=== PATIENT | female | born 1965 | race African-American/Black ===

== ENCOUNTER 2019-02-20 10:01 | Observation (INO) | payer OTHER ==
[~2019-02-20] VITALS: Ht 157.5 cm; Wt 82.6 kg
--- OUTSIDE RECORDS SUMMARY | 2019-02-20 10:03 | XMS REPORT | Clinical Summary ---
Author Author [facility] Address Unknown Phone Unavailable Care Team Providers Care Emergency Dept Tech Name Role Phone Milton Garcia MD PCP Allergies Comments Active Allergy Reactions Severity Noted Date Cyclobenzaprine Hcl Anaphylaxis High 11/18/2018 Other reaction(s): Other (See Comments) Pork/Porcine Containing 01/13/2015 Products Medications End Date Status Medication Sig Dispensed Refills Start Date Active acetaminophen (TYLENOL Take by 0 ORAL) mouth. Active omega-3s/dha/epa/fish oil Take by 0 (OMEGA 3 ORAL) mouth. Active multivitamin (THERAGRAN) Take 1 tablet 0 tablet by mouth daily. 01/11/2019 Discontinued (Patient Discharge) BYSTOLIC 5 mg tablet Take 5 mg by 11 mouth once 7 daily. 01/11/2019 Discontinued (Patient Discharge) sertraline (ZOLOFT) 50 MG Take 50 mg by tablet mouth once 7 daily. 01/11/2019 Discontinued (Patient Discharge) traMADol-acetaminophen Take 1 tablet 0 (ULTRACET) 37.5-325 mg by mouth 7 per tablet every 12 (twelve) hours as needed. for pain 01/02/2019 methylPREDNISolone follow 21 tablet 0 (MEDROL, KAREN,) 4 mg package 9 tablet directions 01/17/2019 methylPREDNISolone follow 21 tablet 0 (MEDROL, KAREN,) 4 mg package 9 tablet directions Active Problems No known active problems Encounters Care Team Description Date Type Specialty Kisha Dockery RN 01/24/2019 Telephone Orthopedic Surgery Luly Guan MD Left shoulder strain, subsequent encounter (Primary Dx); Right shoulder strain, subsequent encounter 01/11/2019 Office Visit Orthopedic Surgery Luly Guan MD Left shoulder strain, subsequent encounter (Primary Dx); Right shoulder strain, subsequent encounter 2018 Office Visit Orthopedic Surgery Lluy Guan MD Left shoulder strain, initial encounter (Primary Dx); Right shoulder strain, initial encounter 12/14/2018 Office Visit Orthopedic Surgery Luly Guan MD 11/26/2018 Documentation Orthopedic Surgery Luly Guan MD Acute pain of both shoulders (Primary Dx); Right shoulder strain, initial encounter; Left shoulder strain, initial encounter 11/25/2018 Office Visit Orthopedic Surgery Rene Jones MD 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 Last Filed Vital Signs Reading Time Taken Comments Vital Sign - - Blood Pressure - - Pulse - - Temperature - - Respiratory Rate - - Oxygen Saturation - - Inhaled Oxygen Concentration 84.4 kg (186 lb) 01/11/2019 3:49 PM CDT Weight 162.6 cm (5' 4") 01/11/2019 3:49 PM CDT Height 31.93 01/11/2019 3:49 PM CDT Body Mass Index Plan of Treatment Care Team Description Date Type Specialty Luly Guan MD [address] [phone] 02/25/2019 Office Visit Orthopedic Surgery Health Maintenance Due Date Last Done Comments BREAST CANCER SCREENING 2016 COLONOSCOPY SCREENING 2016 SHINGLES VACCINES (#1) 2016 INFLUENZA VACCINE 02/03/2019 Procedures Comments Procedure Name Priority Date/Time Associated Diagnosis MRI SHOULDER WO CONTRAST Routine 11/25/2018 Left shoulder strain, LEFT 3:45 PM CDT initial encounter MRI SHOULDER WO CONTRAST Routine 11/25/2018 Right shoulder strain, RIGHT 3:34 PM CDT initial encounter XR SHOULDERS BILATERAL Routine 11/25/2018 Acute pain of both 1:45 PM CDT shoulders FUNGUS SMEAR Routine 09/09/2018 1:00 PM TILE MECHANIC HELPER AFB STAIN Routine 09/09/2018 1:00 PM TILE MECHANIC HELPER GRAM STAIN Routine 09/09/2018 1:00 PM TILE MECHANIC HELPER SPUTUM CULTURE Routine 09/09/2018 Pulmonary disease due to 1:00 PM TILE MECHANIC HELPER mycobacteria (HCC) XR CHEST 2 VW Routine 09/09/2018 Cough 12:54 PM TILE MECHANIC HELPER FUNGUS CULTURE Routine 09/09/2018 Pulmonary disease due to 12:00 PM TILE MECHANIC HELPER mycobacteria (HCC) AFB CULTURE Routine 09/09/2018 Pulmonary disease due to 12:00 PM TILE MECHANIC HELPER mycobacteria (HCC) after 02/19/2018 Results * MRI Shoulder Wo Contrast Left (11/25/2018 3:45 PM CDT) Specimen Narrative Performed At EXAMINATION:MRI SHOULDER WO CONTRAST LEFT [facility] CLINICAL HISTORY:S46.912A Strain of unspecified musclefascia and tendon at shoulder and upper arm levelleft arminitial encounter, Shoulder paininitial exam COMPARISON:None. TECHNIQUE: Multiplanar, multisequence MR imaging of the left shoulder was performed without contrast. FINDINGS: There is low-grade subscapularis and supraspinatus tendinosis. An intrasubstance longitudinal tear is observed within the cranial subscapularis myotendinous unit (series 2 image 11, series 7 image 10). There is articular and bursal-sided fraying of the supraspinatus tendon, and tiny foci of fluid signal intensity partially undermine the the supraspinatus tendon footprint (series 4 images 11-13). There is no significant rotator cuff tear. Normal muscle bulk and signal are present. No strain, atrophy, or myositis seen. Long head of the biceps tendon, biceps sling, and rotator interval are intact. Nondisplaced tear of the superior labrum incidentally noted (series 4 images 11-13). Hypertrophic osteoarthritis of the acromioclavicular joint with capsulosynovial thickening effacing the subacromial fat and impressing upon the supraspinatus myotendinous unit (series 4 image 14). Acromion is type III with lateral downsloping. No subluxation or os acromiale. There is mild thickening of the subacromial-subdeltoid bursa. Glenohumeral articular cartilage is intact. Subcortical microcysts are located within the posterolateral humeral head. There are no significant degenerative changes and no malalignment. Bone marrow signal is normal. No joint effusion. Intermediate signal intensity within the rotator interval is consistent with low-grade adhesive capsulitis. IMPRESSION: 1. Low-grade adhesive capsulitis. 2. There are findings suggestive of and which predispose to the clinical diagnosis of extrinsic cuff impingement. Thank you for allowing us to participate in the care of your patient. [facility]-[id number] Procedure Note Hm Interface, Radiology Results Incoming - 11/25/2018 4:13 PM CDT EXAMINATION: MRI SHOULDER WO CONTRAST LEFT CLINICAL HISTORY: S46.912A Strain of unspecified muscle fascia and tendon at shoulder and upper arm level left arm initial encounter, Shoulder pain initial exam COMPARISON: None. TECHNIQUE: Multiplanar, multisequence MR imaging of the left shoulder was performed without contrast. FINDINGS: There is low-grade subscapularis and supraspinatus tendinosis. An intrasubstance longitudinal tear is observed within the cranial subscapularis myotendinous unit (series 2 image 11, series 7 image 10). There is articular and bursal-sided fraying of the supraspinatus tendon, and tiny foci of fluid signal intensity partially undermine the the supraspinatus tendon footprint (series 4 images 11-13). There is no significant rotator cuff tear. Normal muscle bulk and signal are present. No strain, atrophy, or myositis seen. Long head of the biceps tendon, biceps sling, and rotator interval are intact. Nondisplaced tear of the superior labrum incidentally noted (series 4 images 11-13). Hypertrophic osteoarthritis of the acromioclavicular joint with capsulosynovial thickening effacing the subacromial fat and impressing upon the supraspinatus myotendinous unit (series 4 image 14). Acromion is type III with lateral downsloping. No subluxation or os acromiale. There is mild thickening of the subacromial-subdeltoid bursa. Glenohumeral articular cartilage is intact. Subcortical microcysts are located within the posterolateral humeral head. There are no significant degenerative changes and no malalignment. Bone marrow signal is normal. No joint effusion. Intermediate signal intensity within the rotator interval is consistent with low-grade adhesive capsulitis. IMPRESSION: 1. Low-grade adhesive capsulitis. 2. There are findings suggestive of and which predispose to the clinical diagnosis of extrinsic cuff impingement. Thank you for allowing us to participate in the care of your patient. [facility]-[id number] [facility] Organization Address City/State/Zipcode Phone Number [facility] [address] [place] [address] * MRI Shoulder Wo Contrast Right (11/25/2018 3:34 PM CDT) Specimen Narrative Performed At [facility] EXAMINATION:MRI SHOULDER WO CONTRAST RIGHT CLINICAL HISTORY:S46.911A Strain of unspecified musclefascia and tendon at shoulder and upper arm levelright arminitial encounter, strain COMPARISON:None. TECHNIQUE: Multiplanar, multisequence MR imaging of the right shoulder was performed without contrast. FINDINGS: There is a moderate partial thickness intrasubstance tear of the anterior infraspinatus tendon footprint measuring 6 mm from anterior to posterior without significant retraction (series 5 image 10, series 6 image 3). There is also tendinosis involving the distal 2 cm of the tendon. Remainder of the rotator cuff is unremarkable. There is normal muscle bulk and signal. No muscular strain, atrophy, or myositis. Long head of the biceps tendon, biceps sling, labral anchor, and rotator interval are intact. There is low-grade tendinosis of the intra-articular segment. Linear intermediate signal intensity seen within the substance of the anterosuperior labrum (series 5 image 12) is probably a healed tear. 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 Acromion is type I. No subluxation, downsloping, or os acromiale. There is mild fluid distention and thickening of the subacromial-subdeltoid bursa. Glenohumeral articular cartilage is intact. Subcortical microcysts are located within the posterolateral humeral head. There are no significant degenerative changes. No joint effusion, synovitis, or capsulitis. IMPRESSION: 1. Tendinosis and moderate partial-thickness intrasubstance tear of the distal anterior infraspinatus tendon. 2. There are findings which predispose to and are suggestive of the clinical diagnosis of extrinsic rotator cuff impingement. Thank you for allowing us to participate in the care of your patient. [id number] Procedure Note Hm Interface, Radiology Results Incoming - 11/25/2018 4:59 PM CDT EXAMINATION: MRI SHOULDER WO CONTRAST RIGHT CLINICAL HISTORY: S46.911A Strain of unspecified muscle fascia and tendon at shoulder and upper arm level right arm initial encounter, strain COMPARISON: None. TECHNIQUE: Multiplanar, multisequence MR imaging of the right shoulder was performed without contrast. FINDINGS: There is a moderate partial thickness intrasubstance tear of the anterior infraspinatus tendon footprint measuring 6 mm from anterior to posterior without significant retraction (series 5 image 10, series 6 image 3). There is also tendinosis involving the distal 2 cm of the tendon. Remainder of the rotator cuff is unremarkable. There is normal muscle bulk and signal. No muscular strain, atrophy, or myositis. Long head of the biceps tendon, biceps sling, labral anchor, and rotator interval are intact. There is low-grade tendinosis of the intra-articular segment. Linear intermediate signal intensity seen within the substance of the anterosuperior labrum (series 5 image 12) is probably a healed tear. 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 Acromion is type I. No subluxation, downsloping, or os acromiale. There is mild fluid distention and thickening of the subacromial-subdeltoid bursa. Glenohumeral articular cartilage is intact. Subcortical microcysts are located within the posterolateral humeral head. There are no significant degenerative changes. No joint effusion, synovitis, or capsulitis. IMPRESSION: 1. Tendinosis and moderate partial-thickness intrasubstance tear of the distal anterior infraspinatus tendon. 2. There are findings which predispose to and are suggestive of the clinical diagnosis of extrinsic rotator cuff impingement. Thank you for allowing us to participate in the care of your patient. [facility]-[id number] Performing Organization Address [facility] Phone Number [facility] [address] [place] [phone] * XR Shoulders Bilateral (11/25/2018 1:45 PM CDT) Specimen [facility]arrative [facility] Radiographs of the left shoulder, 3 views, AP, Y and axillary lateral views: No fracture, no dislocation, normal alignment, preserved glenohumeral joint space, no pathologic lesion, benign greater tuberosity cysts, preserved acromiohumeral interval, type II acromion, AC joint degenerative changes Radiographs of the right shoulder, 3 views, AP, Y and axillary lateral views: No fracture, no dislocation, normal alignment, preserved glenohumeral joint space, no pathologic lesion, benign greater tuberosity cysts, preserved acromiohumeral interval, type II acromion, AC joint degenerative changes Performing Organization Address [facility] Cent[facility]ode Phone Number [facility] [address] [place] [phone] * Fungus smear (09/09/2018 1:00 PM TILE MECHANIC HELPER) Fungus smear No fungi observed. [place] Comment: [facility] Specimen Information HOSPITAL Specimen Source: Sputum Specimen Site: Not otherwise specified Specimen Sputum - Not otherwise specified Performing Organization Address [facility] Cent[facility]ode Phone Number [facility] [place] [address] PATHOLOGY AND GENOMIC [facility]IC[facility] [place] [address] HOSPITAL * Sputum culture (09/09/2018 1:00 PM TILE MECHANIC HELPER) Sputum culture Normal oral rico isolated. [place] isolate Comment: [facility] Specimen Information HOSPITAL Specimen Source: Sputum Specimen Site: Not otherwise specified Specimen Sputum - Not otherwise specified Performing Organization Address [facility] Cent[facility]ode Phone Number [facility] [place] [address] PATHOLOGY AND GENOMIC MEDICINE [address] * Gram stain (09/09/2018 1:00 PM TILE MECHANIC HELPER) Gram stain Rare WBC's [place] isolate Many Gram positive rods [facility] Comment: HOSPITAL Specimen Information Specimen Source: Sputum Specimen Site: Not otherwise specified Specimen Sputum - Not otherwise specified Performing Organization Address City/[facility]/Zipcode Phone Number [facility] DEPARTMENT OF [address] [place] [phone] PATHOLOGY AND [facility] [address] [place] [address] * AFB stain (09/09/2018 1:00 PM TILE MECHANIC HELPER) AFB stain No acid fast bacilli (AFB) [place] seen. [facility] Comment: HOSPITAL Specimen Information Specimen Source: Sputum Specimen Site: Not otherwise specified Specimen Sputum - Not otherwise specified Performing Organization Address [facility] Centercode Phone Number [facility] DEPARTMENT OF [address] [place] [phone] PATHOLOGY [facility] [place] [address] HOSPITAL * XR Chest 2 Vw (09/09/2018 12:54 PM TILE MECHANIC HELPER) Specimen Narrative Performed At Examination:XR CHEST 2 VW [facility] Clinical History: R05 Cough, r05 Comparison: None. Technique: Frontal and lateral views of the chest were obtained. Findings: Lungs and pleural surfaces are clear. Cardiomediastinal silhouette and pulmonary vascularity are within normal limits. Bones are intact. Impression: No active cardiopulmonary disease identified. [facility]-[id number] Procedure Note Interface, Radiology Results Incoming - 09/09/2018 1:09 PM TILE MECHANIC HELPER Examination: XR CHEST 2 VW Clinical History: R05 Cough, r05 Comparison: None. Technique: Frontal and lateral views of the chest were obtained. Findings: Lungs and pleural surfaces are clear. Cardiomediastinal silhouette and pulmonary vascularity are within normal limits. Bones are intact. Impression: No active cardiopulmonary disease identified. [facility]-[id number] Performing Organization Address City/[facility]/Zipcode Phone Number [facility] [address] [place] [phone] * AFB culture (09/09/2018 12:00 PM TILE MECHANIC HELPER) AFB culture No growth after 6 weeks of [place] isolate incubation. [facility] Comment: HOSPITAL Specimen Information Specimen Source: Sputum Specimen Site: Not otherwise specified Specimen Sputum - Not otherwise specified Performing Organization Address City/[facility]/Zipcode Phone Number [facility] DEPARTMENT OF [address] [place] [phone] PATHOLOGY AND [facility] [address] [place] [address] * Fungus culture (09/09/2018 12:00 PM TILE MECHANIC HELPER) Fungus culture No growth after 4 weeks of [place] isolate incubation. [facility] Comment: HOSPITAL Specimen Information Specimen Source: Sputum Specimen Site: Not otherwise specified Specimen Sputum - Not otherwise specified Performing Organization Address City/State/Zipcode Phone Number 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
--- OUTSIDE RECORDS SUMMARY | 2019-02-20 10:03 | XMS REPORT ---
Author Author [facility] Address Unknown Phone Unavailable Care Team Providers Care Dairy Clerk Name Role Phone Unavailable Unavailable Problems This patient has no known problems. Allergies, Adverse Reactions, Alerts This patient has no known allergies or adverse reactions. Medications This patient has no known medications.
--- OUTSIDE RECORDS SUMMARY | 2019-02-20 10:07 | XMS REPORT | Clinical Summary ---
Author Author Marquez Jain Organization [employer] [facility] Address Unknown Phone Unavailable Care Team Providers Care Senior Accounts Payable Specialist Name Role Phone Milton Garcia MD PCP [...] subsequent encounter 2018 Office Visit Orthopedic Surgery Luly Guan MD Left shoulder strain, initial encounter [...] Description Date Type Specialty Luly Guan MD [address] [id number] 02/25/2019 Office Visit Orthopedic Surgery Health Maintenance [...] shoulders FUNGUS SMEAR Routine 09/09/2018 1:00 PM KENO WRITER/RUNNER AFB STAIN Routine 09/09/2018 1:00 PM KENO WRITER/RUNNER GRAM STAIN Routine 09/09/2018 1:00 PM KENO WRITER/RUNNER SPUTUM CULTURE Routine 09/09/2018 Pulmonary disease due to 1:00 PM KENO WRITER/RUNNER mycobacteria (HCC) XR CHEST 2 VW Routine 09/09/2018 Cough 12:54 PM KENO WRITER/RUNNER FUNGUS CULTURE Routine 09/09/2018 Pulmonary disease due to 12:00 PM KENO WRITER/RUNNER mycobacteria (HCC) AFB CULTURE Routine 09/09/2018 Pulmonary disease due to 12:00 PM KENO WRITER/RUNNER mycobacteria (HCC) after 02/19/2018 Results * MRI [...] participate in the care of your patient. [facility]-[id number] Procedure Note Hm Interface, Radiology Results Incoming [...] participate in the care of your patient. [facility]-[id number] [facility] Organization Address City/State/Zipcode Phone Number [facility] [address] [place] [address] * MRI Shoulder Wo Contrast Right (11/25/2018 [...] participate in the care of your patient. [facility]-[id number] Procedure Note Hm Interface, Radiology Results Incoming [...] participate in the care of your patient. [facility]-[id number] Performing Organization Address [facility] Phone Number [facility] [address] [place] [phone] * XR Shoulders Bilateral (11/25/2018 1:45 PM CDT) Specimen Narrative [facility]formed At [facility] Radiographs of the left shoulder, 3 views, [...] AC joint degenerative changes Performing Organization Address [facility] Phone Number [facility] [address] [place] [phone] * Fungus smear (09/09/2018 1:00 PM KENO WRITER/RUNNER) Fungus smear No fungi observed. [facility] Comment: [facility] Specimen Information HOSPITAL Specimen Source: Sputum Specimen Site: Not otherwise specified Specimen Sputum - Not otherwise specified Performing Organization Address [facility] Phone Number [facility] [place] [address] PATHOLOGY AND GENOMIC MEDICINE [place] [address] HOSPITAL * Sputum culture (09/09/2018 1:00 PM KENO WRITER/RUNNER) Sputum culture Normal oral rico isolated. MARQUEZ isolate Comment: [facility]OR[facility] Specimen Information HOSPITAL Specimen Source: Sputum Specimen Site: Not otherwise specified Specimen Sputum - Not otherwise specified Performing Organization Address [facility] Phone Number [facility] [place] [address] PATHOLOGY AND GENOMIC MEDICINE [address] * Gram stain (09/09/2018 1:00 PM KENO WRITER/RUNNER) Gram stain Rare WBC's MARQUEZ isolate Many Gram positive rods [facility] Comment: HOSPITAL Specimen Information Specimen Source: Sputum Specimen Site: Not otherwise specified Specimen Sputum - Not otherwise specified Performing Organization Address City/[facility]/Zipcode Phone Number [facility] DEPARTMENT OF [address] [place] [phone] PATHOLOGY AND [facility] REST[facility]ATION [address] [place] [address] * AFB stain (09/09/2018 1:00 PM KENO WRITER/RUNNER) AFB stain No acid fast bacilli (AFB) [facility] seen. [facility] Comment: HOSPITAL Specimen Information Specimen Source: Sputum Specimen Site: Not otherwise specified Specimen Sputum - Not otherwise specified Performing Organization Address [facility] Phone Number [facility] DEPARTMENT OF [address] [place] [phone] PATHOLOGY [facility] [place] [address] HOSPITAL * XR Chest 2 Vw (09/09/2018 12:54 PM KENO WRITER/RUNNER) Specimen Narrative Performed At Examination:XR CHEST 2 VW [facility] Clinical History: R05 Cough, r05 Comparison: None. Technique: Frontal and lateral views of the chest were obtained. Findings: Lungs and pleural surfaces are clear. Cardiomediastinal silhouette and pulmonary vascularity are within normal limits. Bones are intact. Impression: No active cardiopulmonary disease identified. [facility]-[id number] Procedure Note Interface, Radiology Results Incoming - 09/09/2018 1:09 PM KENO WRITER/RUNNER Examination: XR CHEST 2 VW Clinical History: R05 Cough, r05 Comparison: None. Technique: Frontal and lateral views of the chest were obtained. Findings: Lungs and pleural surfaces are clear. Cardiomediastinal silhouette and pulmonary vascularity are within normal limits. Bones are intact. Impression: No active cardiopulmonary disease identified. [facility]-[id number] Performing Organization Address City/[facility]/Zipcode Phone Number [facility] [address] [place] [phone] * AFB culture (09/09/2018 12:00 PM KENO WRITER/RUNNER) AFB culture No growth after 6 weeks of [facility] isolate incubation. [facility] Comment: HOSPITAL Specimen Information Specimen Source: Sputum Specimen Site: Not otherwise specified Specimen Sputum - Not otherwise specified Performing Organization Address City/[facility]/Zipcode Phone Number [facility] DEPARTMENT OF [address] [place] [address] PATHOLOGY AND [facility] [address] [place] [address] * Fungus culture (09/09/2018 12:00 PM KENO WRITER/RUNNER) Fungus culture No growth after 4 weeks of [place] isolate incubation. 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
[2019-02-20] MEDS ORDERED: ASPIRIN 81 MG CHEW TAB PO ONE (10:30)
[2019-02-20 10:48] LABS: BASOPHILS % 0.3 % (0.0-1.0); EOSINOPHILS # (AUTO) 0.1 (0.0-0.4); HEMATOCRIT 39.4 % (34.2-44.1); HEMOGLOBIN 13.4 g/dL (12.0-16.0); LYMPHOCYTES # (AUTO) 1.7 (1.0-3.2); LYMPHOCYTES % 48.7 % (18.0-39.1); MEAN CORPUSCULAR HEMOGLOBIN 30.2 pg (28-32); MEAN CORPUSCULAR VOLUME 88.7 fL (81-99); MONOCYTES # (AUTO) 0.3 (0.2-0.8); MONOCYTES % 8.1 % (4.4-11.3); NEUTROPHILS # (AUTO) 1.4 (2.1-6.9); NEUTROPHILS % 40.6 % (38.7-80.0); PLATELET COUNT 260 x10e3/uL (140-360); RED BLOOD COUNT 4.44 x10e6/uL (3.6-5.1); RED CELL DISTRIBUTION WIDTH 12.2 % (11.7-14.4)
[2019-02-20 10:57] LABS: INR 0.97; PARTIAL THROMBOPLASTIN TIME 30.8 seconds (23.8-35.5); PROTHROMBIN TIME 13.4 seconds (11.9-14.5)
[2019-02-20 11:04] LABS: ALANINE AMINOTRANSFERASE 12 IU/L (0-55); ALBUMIN 4.2 g/dL (3.5-5.0); ALBUMIN/GLOBULIN RATIO 1.4 (0.8-2.0); ALKALINE PHOSPHATASE 52 IU/L (40-150); ANION GAP 13.8 mmol/L (8-16); BLOOD UREA NITROGEN 10 mg/dL (7-26); BUN/CREATININE RATIO 10 (6-25); CALCIUM 9.9 mg/dL (8.4-10.2); CARBON DIOXIDE 24 mmol/L (22-29); CHLORIDE 105 mmol/L (98-107); CREATINE KINASE 125 IU/L (29-168); CREATININE, SERUM 0.99 mg/dL (0.57-1.11); EST GLOMERULAR FILTRATION RATE > 60 ML/MIN (60-); GLUCOSE 89 mg/dL (74-118); MAGNESIUM 2.6 MG/DL (1.3-2.1); POTASSIUM 3.8 mmol/L (3.5-5.1); SODIUM 139 mmol/L (136-145)
--- NOTE | 2019-02-20 11:09 | Diagnostic Imaging Report ---
Examination: Single AP view of the chest. COMPARISON: Chest 2 views 08/24/2015 INDICATION: Chest pain, left-sided, radiating to left shoulder IMPRESSION: 1. Lines and Tubes: None 2. Lungs are grossly clear. No consolidation or effusion. 3. Cardiomediastinal silhouette is normal. Pulmonary vasculature is normal. 4. No acute bony abnormalities. Signed by: Dr. Mehdi King M.D. on 02/20/2019 11:06 AM
[2019-02-20] MEDS ORDERED: MORPHINE SULFATE INJ 4 MG/ML INJ 1ML IV ONE (11:45)
[2019-02-20] MEDS ORDERED: MORPHINE SULFATE 5 MG/ML VIAL IV ONE (11:45)
[2019-02-20 12:06] LABS: CLARITY,URINE CLEAR (CLEAR); COLOR,URINE YELLOW (YELLOW); LEUKOCYTE ESTERASE ,URINE NEGATIVE (NEGATIVE)
[2019-02-20 12:07] LABS: BILIRUBIN,URINE NEGATIVE (NEGATIVE); KETONES,URINE NEGATIVE (NEGATIVE); NITRITE,URINE NEGATIVE (NEGATIVE); PROTEIN,URINE DIPSTICK NEGATIVE (NEGATIVE); URINE UROBILINOGEN 0.2 mg/dL (0.2 - 1)
[2019-02-20 12:37] LABS: BACTERIA,URINE FEW /HPF; EPITHELIAL CELLS,URINE FEW /LPF; WBC,URINE (MAN) 0-5 /HPF (0-5)
--- OUTSIDE RECORDS SUMMARY | 2019-02-20 12:51 | XMS REPORT | Clinical Summary ---
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 [facility]-[id number] Procedure Note Hm Interface, Radiology Results Incoming [...] participate in the care of your patient. [facility]-[id number] [facility] Organization Address City/State/Zipcode Phone Number [facility] [address] [place] [address] * MRI Shoulder Wo Contrast Right (11/25/2018 [...] participate in the care of your patient. [facility]-[id number] Procedure Note Hm Interface, Radiology Results Incoming [...] participate in the care of your patient. [facility]-[id number] Performing Organization Address [facility] Servicescode Phone Number [facility] [address] [place] [phone] * XR Shoulders Bilateral (11/25/2018 1:45 PM CDT) Specimen Narrative Performed At [facility] Radiographs of the left shoulder, [...] AC joint degenerative changes Performing Organization Address [facility] Servicescode Phone Number [facility] [address] [place] [phone] * Fungus smear (09/09/2018 1:00 PM MD DO [facility]) Fungus smear No fungi observed. SE[facility] MILE Comment: SABIANIST Specimen Information HOSPITAL Specimen Source: Sputum Specimen Site: Not otherwise specified Specimen Sputum - Not otherwise specified Performing Organization Address [facility] Servicescode Phone Number [facility] [place] [address] PATHOLOGY AND GENOMIC MEDICINE [place] [address] HOSPITAL * Sputum culture (09/09/2018 1:00 PM MD DO [facility]) Sputum culture Normal oral rico isolated. MARQUEZ isolate Comment: SABIANIST Specimen Information HOSPITAL Specimen Source: Sputum Specimen Site: Not otherwise specified Specimen Sputum - Not otherwise specified Performing Organization Address [facility] Services[facility] Phone Number [facility] [place] [address] PATHOLOGY AND GENOMIC MEDICINE [address] * Gram stain (09/09/2018 1:00 PM MD DO [facility]) Gram stain Rare WBC's MARQUEZ isolate Many Gram positive rods SABIANIST Comment: HOSPITAL Specimen Information Specimen Source: Sputum Specimen Site: Not otherwise specified Specimen Sputum - Not otherwise specified Performing Organization Address City/[facility]/Zipcode Phone Number [facility] DEPARTMENT OF [address] [place] [address] [address] [facility] SABIANIST [address] [place] [address] * AFB stain (09/09/2018 1:00 PM MD DO [facility]) AFB stain No acid fast bacilli (AFB) [facility] seen. S[facility]IANIST Comment: HOSPITAL Specimen Information Specimen Source: Sputum Specimen Site: Not otherwise specified Specimen Sputum - Not otherwise specified Performing Organization Address [facility] Servicescode Phone Number [facility] DEPARTMENT OF [address] [place] [phone] PATHOLOGY [facility] [place] [address] HOSPITAL * XR Chest 2 Vw (09/09/2018 12:54 PM MD DO [facility]) Specimen Narrative Performed At Examination:XR CHEST 2 VW [facility] Clinical History: R05 Cough, r05 Comparison: None. Technique: Frontal and lateral views of the chest were obtained. Findings: Lungs and pleural surfaces are clear. Cardiomediastinal silhouette and pulmonary vascularity are within normal limits. Bones are intact. Impression: No active cardiopulmonary disease identified. [facility]-[id number] Procedure Note Interface, Radiology Results Incoming - 09/09/2018 1:09 PM MD DO [facility] Examination: XR CHEST 2 VW Clinical History: R05 Cough, r05 Comparison: None. Technique: Frontal and lateral views of the chest were obtained. Findings: Lungs and pleural surfaces are clear. Cardiomediastinal silhouette and pulmonary vascularity are within normal limits. Bones are intact. Impression: No active cardiopulmonary disease identified. [facility]-[id number] Performing Organization Address City/[facility]/Zipcode Phone Number [facility] [address] [place] [phone] * AFB culture (09/09/2018 12:00 PM MD DO [facility]) AFB culture No growth after 6 weeks of SE[facility] [place] isolate incubation. [facility]IANIST Comment: HOSPITAL Specimen Information Specimen Source: Sputum Specimen Site: Not otherwise specified Specimen Sputum - Not otherwise specified Performing Organization Address City/[facility]/Zipcode Phone Number [facility] DEPARTMENT OF [address] [place] [address] [address] [facility] SABIANIST [address] [place] [address] * Fungus culture (09/09/2018 12:00 PM MD DO [facility]) Fungus culture No growth after 4 weeks of SEVEN MILE isolate incubation. SABIANIST Comment: HOSPITAL Specimen Information Specimen Source: Sputum Specimen Site: Not otherwise specified Specimen Sputum - Not otherwise specified Performing Organization Address City/State/Zipcode Phone Number [facility] DEPARTMENT OF [address] [place] [address] PATHOLOGY AND GENOMIC MEDICINE [facility] SABIANIST [address] [place] [address] HOSPITAL after 02/19/2018 Insurance Type Payer Benefit Subscriber ID Effective Phone Address Plan / Dates Group HMO/PPO [facility] xxxxxxxxx 2018-P THCARE resent CHOICE/CHO ICE + Advance Directives Patient Assembly Line Machine Operator Explanation Type Date Recorded Advance Directives, Living Will and Medical Power of Copier Technician
[2019-02-20] MEDS ORDERED: ACETAMINOPHEN 325 MG TAB PO PRN (13:15)
--- NOTE | 2019-02-20 13:28 | NUR ---
DR. WELLER AT BEDSIDE FOR PT EVAL, EXPLAINING PLAN OF CARE; REQUESTING TO HAVE CARDIAC ENZYMES DRAWN AT THIS TIME, SPECIMENS DRAWN AT THIS TIME AND SENT TO THE LAB. INFORMED PRIMARY NURSE GILMAR GONZALEZ.
[2019-02-20] MEDS ORDERED: CLOPIDOGREL BISULFATE 75 MG TAB PO ONE ×2 (13:45→18:30)
--- NOTE | 2019-02-20 14:08 | NUR ---
RECEIVED TO ILYA AAOX3 NO DISTRESS NOTED, UPDATED ON POC VOICED UNDERSTANDING, DENIES PAIN AT THIS TIME, L AC 20G NO SS OF INFILTRATION NOTED, NO OTHER CO VOICED CALL LIGHT IN REACH WILL CONTINUE TO MONITOR
[2019-02-20 14:15] LABS: CREATINE KINASE 116 IU/L (29-168)
[2019-02-20] MEDS ORDERED: PROBIOTIC & AC1 EACH PO (14:41)
[2019-02-20] MEDS ORDERED: MULTI-VITAMIN1 EACH PO (14:41)
[2019-02-20] MEDS ORDERED: TYLENOL EXTRA500 MG PO (14:41)
[2019-02-20] MEDS ORDERED: ASPIRIN81 MG PO (14:41)
[2019-02-20] MEDS ORDERED: OMEGA-31000 MG PO (14:41)
[2019-02-20] MEDS ORDERED: METOPROLOL SUCC25 MG PO (14:41)
--- NOTE | 2019-02-20 14:53 | History and Physical ---
HISTORY OF PRESENT ILLNESS: The patient is came here with chest pain. She is a 53-year-old female, who has no past medical history except for some ovarian masses, constipation and hypertension. The patient came here with the episode of chest pain on the left side of the chest, radiated to the neck, also she has pain all over and her chest pain is reproduced by palpation. REVIEW OF SYSTEMS: CARDIOVASCULAR: She had episode of chest pain, lasted 16-20 minutes with sweating and nausea. RESPIRATORY: No shortness of breath. No cough. GASTROINTESTINAL: No nausea or vomiting. No diarrhea. She has been having constipation for a while and she is scheduled to have a colonoscopy. GENITOURINARY: No frequency, no dysuria. ALLERGIES: LISTED IN THE CHART. SOCIAL HISTORY: She does not smoke. She drinks occasionally. PAST MEDICAL HISTORY: Positive for what I mentioned and constipation, hypertension. PHYSICAL EXAMINATION: HEART: Showed regular rhythm. Normal S1, S2 sound. LUNGS: Clear bilaterally. ABDOMEN: Soft. EXTREMITIES: Show no evidence of cyanosis or hematoma. Chest pain reproduced by palpitation. EKG showed normal sinus rhythm, no evidence of any ST-segment elevation or depression. Troponin x1 is negative. IMPRESSION: 1. Chest pain. 2. Hypertension. 3. Constipation. PLAN OF TREATMENT: We are going to put on telemetry. Start aspirin, beta blockers, Cardiology consult with Dr. Hutchinson. MD FARIDA Smith/GODWIN /[id number]
[2019-02-20 15:15] VITALS: BP 177/86
[2019-02-20 15:31] VITALS: BP 177/86
[2019-02-20] MEDS ORDERED: CLOPIDOGREL BISULFATE 300 MG TAB-DO NOT STOCK PO ONE (18:00)
[2019-02-20] MEDS ORDERED: LOSARTAN POTASSIUM 100 MG TAB PO SCH (18:00)
--- NOTE | 2019-02-20 18:03 | Consultation ---
DATE OF CONSULTATION: Cardiac Consultation REASON FOR CONSULTATION: Chest pain. HISTORY OF PRESENT ILLNESS: This is a 53-year-old lady, who has known longstanding history of hypertension and fibromyalgia. The patient came to this institution complaining of severe chest pain. Initially, she gives ER team history of retrosternal chest pain radiating to her left arm and to her neck. When I visit with her, her pain is subsiding and now she can pinpoint it. It is more over her left breast at one point and definitely radiating to her neck, but in muscle fashion rather than angina fashion. Regardless, the patient does have symptoms consistent of chest pain and she does have several risk factors. She does have easy fatigability and shortness of breath on exertion. She does have some orthopnea, but no paroxysmal nocturnal dyspnea. There is no palpitation. No syncope or presyncope. There is no recent travel. There is no hormone use. There is no pleuritic or pericarditic chest pain. REVIEW OF SYSTEMS: Extensive to all systems, will be summarized for clarity. GENERAL: No fever. No chills. No weight loss. No weight gain. HEENT: No vision problem. No hearing problem. No allergies. No hay fever. PULMONARY: No cough. No hemoptysis. No pleuritic chest pain. CARDIAC: As per acute illness. GI: Bloating, indigestion, but more importantly severe constipation and occasional nausea and vomiting. : No hematuria. No dysuria. MUSCULOSKELETAL: Aches and pain, low back, all muscles. The patient does have fibromyalgia and low back pain. HEMATOLOGY: No easy bruising or bleeding. ENDOCRINE: No polyuria. No polydipsia. No history of diabetes mellitus. NEUROLOGY: Occasional headache. No seizure activity. No weakness. No TIA-like symptoms. SOCIAL HISTORY: She is . She is nonsmoker and non-alcohol drinker. She works in [employer] in a company. HOME MEDICATIONS: 1. Metoprolol-XL or Toprol-XL 25 mg a day. 2. Aspirin 81 mg a day. 3. Twain. 4. Multivitamins. 5. Probiotic. ALLERGIES: LONG LIST INCLUDING CYCLOBENZAPRINE, TRAMADOL, BENAZEPRIL, HYDROCHLOROTHIAZIDE, LISINOPRIL, AND FLEXERIL. PAST MEDICAL HISTORY: 1. Fibromyalgia. 2. Partial hysterectomy. 3. History of meningitis 20 years ago, spinal tap, most likely viral meningitis. 4. Ectopic , status post surgery. 5. Ovarian mass diagnosed and the patient supposed to have surgery and followup in March 28, 2019. FAMILY HISTORY: Father unknown medical history. Mother doing well in her 70s. She does have one brother and she lost him in his 30s for blood illness. One sister, who is 2 years older at age 54, she is a diabetic, hypertensive, one healthy daughter. PHYSICAL EXAMINATION: VITAL SIGNS: Height of 5 feet 6 inches, weight of 176 pounds, blood pressure 160/90, heart rate of 60, and respiratory rate of 18. HEENT: Pupils are equal and reactive. NECK: No elevation of jugular venous pulsation. No bruit. CHEST: Clear to auscultation and percussion. HEART: PMI 5th left intercostal space. Normal first and second heart sounds. ABDOMEN: Soft with good bowel sounds. No organomegaly. No abdominal bruits. EXTREMITIES: No cyanosis. No clubbing. No edema. No signs of deep venous thrombosis. No delay between femoral and carotid pulses. NEUROLOGIC: Neck is supple. No motor deficits. No localized weakness. LABORATORY DATA: Sodium of 139, potassium 3.8, BUN of 10, and creatinine of 0.99. White blood cell count of 3.47, hemoglobin of 13.4, hematocrit 39%, and platelet count of 260,000. Troponin first set is normal. Chest x-ray by report showed no major abnormality and no mediastinal widening with normal cardiomediastinal silhouette. IMPRESSION AND PLAN: 1. Hypertension. 2. Abnormal EKG with left ventricular hypertrophy voltage. 3. Fibromyalgia. 4. Back pain. 5. Ovarian mass. 6. Shortness of breath on exertion and chest tightness. Cardiac-salinas, the patient will be treated as acute coronary syndrome until proven otherwise. I will send stat cardiac enzymes now. If this will be negative, then the patient will have a nuclear stress test in the morning. If this positive, then the patient will be taken to the geochemical laboratory technician. We will get an echocardiogram to evaluate her left ventricular function and her left ventricular hypertrophy and to be sure we are not missing any other structural abnormality. We will maintain aspirin. We will maintain beta-nishi. We will check lipid profile also. Differential diagnosis are discussed and explained to the patient and her . The patient does have good number of questioning. In fact, the total patient care was almost 75 minutes discussing and explaining and taking history, etc. MD JENIFER Solares/GODWIN /[id number]
[2019-02-20] MEDS ORDERED: CLONIDINE HCL 0.1 MG TAB PO PRN (18:15)
[2019-02-20 20:00] VITALS: BP 165/86
--- NOTE | 2019-02-20 20:00 | NUR ---
PT IN BED, FAMILY AT BEDSIDE, NO CP AT THIS TIME, PT C/O PAIN TO LOWER LEGS, TINGLING IN THE EXTREMITIES, VS STABLE, NO OTHER SIGNS OR SYMPTOMS, CONTINUE TO MONITOR
[2019-02-20] MEDS ORDERED: DIAZEPAM 5 MG TAB PO PRN (21:45)
[2019-02-20 21:59] VITALS: BP 184/84
[2019-02-21] VITALS (7 sets, daily range): BP systolic 132–175; BP diastolic 72–95
--- NOTE | 2019-02-21 06:26 | NUR ---
pt awake easily, no distress noted, pt npo for radiology test, no other needs
[2019-02-21 06:35] LABS: BASOPHILS % 0.5 % (0.0-1.0); EOSINOPHILS # (AUTO) 0.1 (0.0-0.4); EOSINOPHILS % 2.6 % (0.0-6.0); HEMATOCRIT 38.7 % (34.2-44.1); HEMOGLOBIN 12.9 g/dL (12.0-16.0); LYMPHOCYTES # (AUTO) 2.2 (1.0-3.2); MEAN CORPUSCULAR HGB CONC 33.3 g/dL (31-35); MONOCYTES # (AUTO) 0.4 (0.2-0.8); MONOCYTES % 9.4 % (4.4-11.3); NEUTROPHILS # (AUTO) 1.2 (2.1-6.9); NEUTROPHILS % 31.2 % (38.7-80.0); PLATELET COUNT 233 x10e3/uL (140-360); RED CELL DISTRIBUTION WIDTH 12.5 % (11.7-14.4)
[2019-02-21 07:12] LABS: ALANINE AMINOTRANSFERASE 9 IU/L (0-55); ALBUMIN 3.7 g/dL (3.5-5.0); ALBUMIN/GLOBULIN RATIO 1.5 (0.8-2.0); ALKALINE PHOSPHATASE 47 IU/L (40-150); ANION GAP 11.1 mmol/L (8-16); BLOOD UREA NITROGEN 11 mg/dL (7-26); BUN/CREATININE RATIO 13 (6-25); CALCIUM 9.3 mg/dL (8.4-10.2); CARBON DIOXIDE 26 mmol/L (22-29); CHLORIDE 101 mmol/L (98-107); CREATININE, SERUM 0.83 mg/dL (0.57-1.11); EST GLOMERULAR FILTRATION RATE > 60 ML/MIN (60-); GLUCOSE 84 mg/dL (74-118); POTASSIUM 4.1 mmol/L (3.5-5.1); SODIUM 134 mmol/L (136-145)
[2019-02-21 07:17] LABS: CREATINE KINASE 82 IU/L (29-168)
[2019-02-21 07:18] LABS: CHOL/HDL RATIO 3.4 (3.0-3.6)
[2019-02-21 07:19] LABS: THYROID STIMULATING HORMONE 0.276 uIU/mL (0.350-4.940)
--- NOTE | 2019-02-21 07:34 | NUR ---
RECEIVED PATIENT AWAKE RESTING IN BED, NO SIGNS OF DISTRESS. BED LOW, WHEELS LOCKED, SIDE RAILS X2. CALL LIGHT IN REACH WILL CONTINUE TO MONITOR PATIENT.
[2019-02-21] MEDS: LACTOBACILLUS ACIDOPHILUS CAPSULE PO SCH ×2 (07:53→14:40)
[2019-02-21] MEDS: MULTIVITAMINS/MINERALS TAB PO SCH ×2 (07:53→14:40)
[2019-02-21] MEDS: OMEGA 3 POLYUNSAT FATTY ACIDS 1000 MG SOFTGEL PO SCH ×2 (07:53→14:40)
[2019-02-21] MEDS: METOPROLOL SUCCINATE 25 MG TAB XL PO SCH ×2 (08:40→14:59)
--- NOTE | 2019-02-21 13:05 | NUR ---
PATIENT TRANSFERRED TO ROOM 178. PATIENT LEFT IN STABLE CONDITION.
--- NOTE | 2019-02-21 16:38 | NUR ---
Patient's Left AC IV removed and tolerated well. Denies any chest pain or discomfort. B/P at 16:15 was 152/72 and heart rate--64. Patient taken via W/C to front lobby and daughter here to pick her up. Written and verbal discharge instructions given to patient. Patient is in good spirits.
--- NOTE | 2019-02-21 18:34 | Operative Report ---
DATE OF PROCEDURE: SURGEON: Bin Hutchinson MD PROCEDURE: Nuclear cardiac stress test ACQUISITION NUMBER: [id number]. TECHNICAL DETAILS: This was a resting stress protocol for the resting images. A total of 11 mCi of Myoview given intravenously. Half an hour after the injection, proper SPECT imaging and scanning were done. For the stress images at peak exercise, 29.3 mCi of Myoview was given and half an hour after the injection, proper SPECT processing and imaging were done. The patient tolerated the procedure. There were no complication. A. Hemodynamic finding; again the protocol is Jim with target heart rate at 143 per minute. 1. The patient exercised for total of 9 minute and 30 seconds. 2. Heart rate increased from 61 to 155 per minute. 3. Blood pressure increased from 160/100 to 213/111. 4. No chest pain. 5. No EKG changes. Impression; negative stress test. B. Nuclear study; 1. A. Myocardial perfusion: 2. a. Resting images. Resting images showed smooth distribution of the isotope in all segments with no abnormal uptake. b. Stress images again showed smooth distribution in all segments with no abnormal uptake. Of note, the septal segment was having higher count than the lateral in the horizontal axis. Impression; most likely normal perfusion myocardial imaging. 1. B. Heart volume: End-diastolic volume of 67, end systolic volume of 27 with left ventricular ejection fraction of 61%. 2. C. Segmental wall motion: Showed normal segmental wall motion abnormalities. IMPRESSION: Low risk cardiac stress test. Results are discussed and explained with the patient. Questions are answered. MD JENNI SolaresJ/MODL /[id number]
[2019-02-22] MEDS ORDERED: ASPIRIN 81 MG ENTERIC COATED PO SCH (09:00)
== END 2019-02-21 16:19 | disposition home or self-care (01) ==
LOC: ER 10:05 → ERHOLD 12:13 → MED/SURG 14:24 → IMCU 02-21 13:04
PROVIDERS: ADMIT Internal Medicine; ATTEND Internal Medicine
DX: R07.89 Other chest pain (principal); I10 Essential (primary) hypertension; Z88.8 Allergy status to other drugs, medicaments and biological substances; Z91.018 Allergy to other foods; Z82.49 Family history of ischemic heart disease and other diseases of the circulatory system; K59.00 Constipation, unspecified; M79.7 Fibromyalgia; N83.9 Noninflammatory disorder of ovary, fallopian tube and broad ligament, unspecified; R94.31 Abnormal electrocardiogram [ECG] [EKG]
CPT/HCPCS: 36415 ×2; 71045; 78452; 80053 ×2; 80061; 81001; 82550 ×2; 82553 ×2; 83735; 83880; 84443; 84484 ×2; 85025 ×2; 85610; 85730; 87086; 93005; 93017; 93306; 93970; 99284; A9502; G0378 ×2; J2270

== ENCOUNTER 2019-02-28 17:20 | Emergency (ER) | payer OTHER ==
[~2019-02-28] VITALS: Ht 157.5 cm; Wt 82.6 kg
[~2019-02-28 17:20] MED LIST: ASPIRIN81 MG PO; METOPROLOL SUCC25 MG PO; MULTI-VITAMIN1 EACH PO; OMEGA-31000 MG PO; PROBIOTIC & AC1 EACH PO; TYLENOL EXTRA500 MG PO
[2019-02-28] MEDS ORDERED: CLONIDINE HCL 0.2 MG TAB PO ONE (18:00)
[2019-02-28 18:13] LABS: BASOPHILS % 0.6 % (0.0-1.0); EOSINOPHILS # (AUTO) 0.1 (0.0-0.4); EOSINOPHILS % 1.5 % (0.0-6.0); HEMATOCRIT 39.6 % (34.2-44.1); HEMOGLOBIN 13.6 g/dL (12.0-16.0); LYMPHOCYTES # (AUTO) 2.6 (1.0-3.2); LYMPHOCYTES % 54.1 % (18.0-39.1); MEAN CORPUSCULAR HEMOGLOBIN 30.4 pg (28-32); MEAN CORPUSCULAR HGB CONC 34.3 g/dL (31-35); MEAN CORPUSCULAR VOLUME 88.6 fL (81-99); MONOCYTES # (AUTO) 0.3 (0.2-0.8); MONOCYTES % 7.1 % (4.4-11.3); NEUTROPHILS # (AUTO) 1.8 (2.1-6.9); NEUTROPHILS % 36.7 % (38.7-80.0); PLATELET COUNT 243 x10e3/uL (140-360); RED BLOOD COUNT 4.47 x10e6/uL (3.6-5.1); RED CELL DISTRIBUTION WIDTH 12.1 % (11.7-14.4)
[2019-02-28 18:15] LABS: INR 0.85; PROTHROMBIN TIME 12.1 seconds (11.9-14.5)
[2019-02-28 18:16] LABS: PARTIAL THROMBOPLASTIN TIME 23.8 seconds (23.8-35.5)
--- OUTSIDE RECORDS SUMMARY | 2019-02-28 18:22 | XMS REPORT | Clinical Summary ---
Author Author [facility] Address Unknown Phone Unavailable Care Team Providers Care Diamond Sander Name Role Phone Milton Garcia MD PCP [...] (Primary Dx) 09/09/2018 Transcribe Access Orders after 02/27/2018 Family History Medical History Relation Name Comments [...] CDT Body Mass Index Plan of Treatment Health Maintenance Due Date Last Done Comments CERVICAL CANCER SCREENING 12/28/1987 BREAST CANCER SCREENING 2016 COLONOSCOPY SCREENING 2016 [...] shoulders FUNGUS SMEAR Routine 09/09/2018 1:00 PM [facility] AFB STAIN Routine 09/09/2018 1:00 PM [facility] GRAM STAIN Routine 09/09/2018 1:00 PM [facility] SPUTUM CULTURE Routine 09/09/2018 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 [facility]-[id number] Procedure Note Hm Interface, Radiology Results Incoming [...] participate in the care of your patient. [facility]-[id number] Performing Organization Address City/State/Zipcode Phone Number [facility] [address] [place] [address] * MRI Shoulder Wo Contrast Right (11/25/2018 [...] participate in the care of your patient. [facility]-[id number] Procedure Note Interface, Radiology Results Incoming - 11/25/2018 4:59 [...] participate in the care of your patient. [facility]-[id number] Performing Organization Address City/State/Zipcode Phone Number [facility] [address] [place] [address] * XR Shoulders Bilateral (11/25/2018 1:45 PM CDT) Specimen Narrative Performed At [facility] Radiographs of the left shoulder, 3 views, [...] AC joint degenerative changes Performing Organization Address City/[facility] Phone Number [facility] [address] [place] [address] * Fungus smear (09/09/2018 1:00 PM [facility]) Fungus smear No fungi observed. [place] Comment: [facility] Specimen Information HOSPITAL Specimen Source: Sputum Specimen Site: Not otherwise specified Specimen Sputum - Not otherwise specified Performing Organization Address [facility] Cent[facility] Phone Number [facility] DEPARTMENT [address] [address] PATHOLOGY AND [facility] [place] [address] HOSPITAL * Sputum culture (09/09/2018 1:00 PM [facility]) Sputum culture Normal oral rico isolated. [facility] isolate Comment: [facility] Specimen Information HOSPITAL Specimen Source: Sputum Specimen Site: Not otherwise specified Specimen Sputum - Not otherwise specified Performing Organization Address City/[facility] Phone Number [facility] DEPARTMENT [address] [address] PATHOLOGY AND [facility] [place] [address] HOSPITAL * Gram stain (09/09/2018 1:00 PM [facility]) Gram stain Rare WBC's [place] isolate Many Gram positive rods [facility] Comment: HOSPITAL Specimen Information Specimen Source: Sputum Specimen Site: Not otherwise specified Specimen Sputum - Not otherwise specified Performing Organization Address [facility]/Zipcode Phone Number [facility] [place] [address] PATHOLOGY AND GENOMIC MEDICINE [place] [facility] [address] [place] [address] * AFB stain (09/09/2018 1:00 PM [facility]) AFB stain No acid fast bacilli (AFB) [facility] seen. [facility] Comment: HOSPITAL Specimen Information Specimen Source: Sputum Specimen Site: Not otherwise specified Specimen Sputum - Not otherwise specified Performing Organization Address City/[facility]/Zipcode Phone Number [facility] [place] [address] PATHOLOGY AND [facility] [place] [address] HOSPITAL * XR Chest 2 Vw (09/09/2018 12:54 PM [facility]) Specimen Narrative Performed At Examination:XR CHEST 2 VW [facility] Clinical History: R05 Cough, r05 Comparison: None. Technique: Frontal and lateral views of the chest were obtained. Findings: Lungs and pleural surfaces are clear. Cardiomediastinal silhouette and pulmonary vascularity are within normal limits. Bones are intact. Impression: No active cardiopulmonary disease identified. [facility]-[id number] Procedure Note Interface, Radiology Results Incoming - 09/09/2018 1:09 PM [facility] Examination: XR CHEST 2 VW Clinical History: R05 Cough, r05 Comparison: None. Technique: Frontal and lateral views of the chest were obtained. Findings: Lungs and pleural surfaces are clear. Cardiomediastinal silhouette and pulmonary vascularity are within normal limits. Bones are intact. Impression: No active cardiopulmonary disease identified. [facility]-[id number] Performing Organization Address City/[facility] [place] [address] * AFB culture (09/09/2018 12:00 PM [facility]) AFB culture No growth after 6 weeks of [place] isolate incubation. [facility] Comment: HOSPITAL Specimen Information Specimen Source: Sputum Specimen Site: Not otherwise specified Specimen Sputum - Not otherwise specified Performing Organization Address City/[facility]/Zipcode Phone Number [facility] [place] [place] [address] * Fungus culture (09/09/2018 12:00 PM [facility]) Fungus culture No growth after 4 weeks of [place] isolate incubation. [facility] Comment: HOSPITAL Specimen Information Specimen Source: Sputum Specimen Site: Not otherwise specified Specimen Sputum - Not otherwise specified Performing Organization Address City/State/Zipcode Phone Number [facility] DEPARTMENT OF [address] [place] [address] PATHOLOGY AND GENOMIC MEDICINE [place] [facility] [address] [place] [address] HOSPITAL after 02/27/2018 Insurance Type Payer Benefit Subscriber ID Effective Phone Address Plan / Dates Group HMO/PPO [facility] xxxxxxxxx 2018-P THCARE resent CHOICE/CHO ICE + Advance Directives For more information, please contact: [phone] Patient Dewer Explanation Type Date Recorded Advance Directives, Living Will and Medical Power of Client Administrator
[2019-02-28 18:27] LABS: ALANINE AMINOTRANSFERASE 12 IU/L (0-55); ALBUMIN 4.2 g/dL (3.5-5.0); ALBUMIN/GLOBULIN RATIO 1.3 (0.8-2.0); ALKALINE PHOSPHATASE 60 IU/L (40-150); ANION GAP 14.8 mmol/L (8-16); BLOOD UREA NITROGEN 15 mg/dL (7-26); BUN/CREATININE RATIO 16 (6-25); CALCIUM 9.9 mg/dL (8.4-10.2); CARBON DIOXIDE 25 mmol/L (22-29); CHLORIDE 103 mmol/L (98-107); CREATINE KINASE 101 IU/L (29-168); CREATININE, SERUM 0.95 mg/dL (0.57-1.11); EST GLOMERULAR FILTRATION RATE > 60 ML/MIN (60-); GLUCOSE 101 mg/dL (74-118); POTASSIUM 3.8 mmol/L (3.5-5.1); SODIUM 139 mmol/L (136-145)
--- NOTE | 2019-02-28 18:39 | Diagnostic Imaging Report ---
EXAMINATION: Head CT HISTORY: Lower extremity numbness and tingling sensation COMPARISON: None. TECHNIQUE: Multidetector axial images were obtained without contrast from the foramen magnum to the vertex . The images were reconstructed using brain and bone algorithms. Thin section brain images were reformatted into coronal and sagittal planes. Image quality: Motion/streaking artifact limits the evaluation of the skull base and posterior cranial fossa. Dose modulation, iterative reconstruction, and/or weight based adjustment of the mA/kV was utilized to reduce the radiation dose to as low as reasonably achievable. FINDINGS: Parenchyma: 1. No abnormal densities. 2. No mass or hemorrhage. No CT evidence of acute territorial vascular insult. Extra-axial spaces:No abnormal density. No extra-axial fluid collections Brain volume: Normal for age. Ventricles: No hydrocephalus or displacement. Arteries: No density suggestive of thrombus. Dural sinuses: No abnormal density. Extra-axial spaces: No abnormal density. Foramen magnum: No mass, Chiari malformation, or basilar invagination. Sella: No obvious mass. Paranasal/mastoid sinuses: Imaged portions unremarkable. Skull/Scalp: No lytic or blastic lesions. No fractures. IMPRESSION: No intracranial abnormalities. Signed by: Dr. Leanne Harris M.D. on 02/28/2019 6:35 PM
[2019-02-28] MEDS ORDERED: CLONIDINE HCL 0.1 MG TAB PO ONE (19:00)
[2019-02-28 19:26] VITALS: BP 160/92
== END 2019-02-28 19:55 | disposition home or self-care (01) ==
LOC: ER 17:20
DX: R07.89 Other chest pain (principal); I10 Essential (primary) hypertension
CPT/HCPCS: 36415; 70450; 80053; 82550; 82553; 84484; 85025; 85610; 85730; 93005; 99284

== ENCOUNTER 2019-03-20 12:57 | Emergency (ER) | payer OTHER ==
[~2019-03-20] VITALS: Ht 157.5 cm; Wt 82.6 kg
--- OUTSIDE RECORDS SUMMARY | 2019-03-20 12:59 | XMS REPORT | Clinical Summary ---
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 [facility]-[id number] Procedure Note Hm Interface, Radiology Results Incoming [...] participate in the care of your patient. [facility]-[id number] Performing Organization Address City/State/Zipcode Phone Number [facility] [address] [place] [address] * MRI Shoulder Wo Contrast Right (11/25/2018 [...] participate in the care of your patient. [facility]-[id number] Procedure Note Interface, Radiology Results Incoming - [...] participate in the care of your patient. [facility]-[id number] Performing Organization Address City/State/Zipcode Phone Number [facility] [address] [place] [address] * XR Shoulders Bilateral (11/25/2018 1:45 PM CDT) Specimen Narrative Performed At [facility] Radiographs of the left shoulder, 3 [...] AC joint degenerative changes Performing Organization Address City/[facility] Phone Number [facility] [address] [place] [address] * Fungus smear (09/09/2018 1:00 PM [facility]INIC[facility]) Fungus smear No fungi observed. [place] Comment: [facility] Specimen Information HOSPITAL Specimen Source: Sputum Specimen Site: Not otherwise specified Specimen Sputum - Not otherwise specified Performing Organization Address [facility] Phone Number [facility] DEPARTMENT [address] [address] PATHOLOGY AND [facility] [place] [address] HOSPITAL * Sputum culture (09/09/2018 1:00 PM [facility]) Sputum culture Normal oral rico isolated. [facility] isolate Comment: [facility] Specimen Information HOSPITAL Specimen Source: Sputum Specimen Site: Not otherwise specified Specimen Sputum - Not otherwise specified Performing Organization Address City/[facility] Phone Number [facility] DEPARTMENT [address] [address] PATHOLOGY AND [facility] [place] [address] HOSPITAL * Gram stain (09/09/2018 1:00 PM [facility]IN[facility]) Gram stain Rare WBC's [place] isolate Many Gram positive rods [facility] Comment: HOSPITAL Specimen Information Specimen Source: Sputum Specimen Site: Not otherwise specified Specimen Sputum - Not otherwise specified Performing Organization Address [facility]/Zipcode Phone Number [facility] [place] [place] [address] PATHOLOGY AND GENOMIC MEDICINE [place] [facility] [address] [place] [address] * AFB stain (09/09/2018 1:00 PM [facility]IN[facility]) AFB stain No acid fast bacilli (AFB) [facility] seen. [facility] Comment: [facility]OSPITAL Specimen Information Specimen Source: Sputum Specimen Site: Not otherwise specified Specimen Sputum - Not otherwise specified Performing Organization Address City/[facility]/Zipcode Phone Number [facility] [place] [place] [address] PATHOLOGY AND [facility] [place] [address] HOSPITAL * XR Chest 2 Vw (09/09/2018 12:54 PM [facility]INIC[facility]) Specimen Narrative Performed At Examination:XR CHEST 2 VW [facility] Clinical History: R05 Cough, r05 Comparison: None. Technique: Frontal and lateral views of the chest were obtained. Findings: Lungs and pleural surfaces are clear. Cardiomediastinal silhouette and pulmonary vascularity are within normal limits. Bones are intact. Impression: No active cardiopulmonary disease identified. [facility]-[id number] Procedure Note Interface, Radiology Results Incoming - 09/09/2018 1:09 PM [facility]IN[facility] Examination: XR CHEST 2 VW Clinical History: R05 Cough, r05 Comparison: None. Technique: Frontal and lateral views of the chest were obtained. Findings: Lungs and pleural surfaces are clear. Cardiomediastinal silhouette and pulmonary vascularity are within normal limits. Bones are intact. Impression: No active cardiopulmonary disease identified. [facility]-[id number] Performing Organization Address City/[facility] [place] [address] * AFB culture (09/09/2018 12:00 PM [facility]INIC[facility]) AFB culture No growth after 6 weeks of [place] isolate incubation. [facility] Comment: HOSPITAL Specimen Information Specimen Source: Sputum Specimen Site: Not otherwise specified Specimen Sputum - Not otherwise specified Performing Organization Address City/[facility]/Zipcode Phone Number [facility] [place] [place] [address] * Fungus culture (09/09/2018 12:00 PM [facility] CLINIC[facility]) Fungus culture No growth after 4 weeks of [place] isolate incubation. [facility] Comment: HOSPITAL Specimen Information Specimen Source: Sputum Specimen Site: Not otherwise specified Specimen Sputum - Not otherwise specified Performing Organization Address City/State/Zipcode Phone Number [facility] DEPARTMENT OF [address] [place] [address] PATHOLOGY AND GENOMIC MEDICINE [place] [facility] [address] [place] [address] HOSPITAL after 03/19/2018 Insurance Type Payer Benefit Subscriber ID Effective Phone Address Plan / Dates Group HMO/PPO [facility] xxxxxxxxx 2018-P THCARE resent CHOICE/CHO ICE + Advance Directives For more information, please contact: [phone] Patient Underwriting Assistant Explanation Type Date Recorded Advance Directives, Living Will and Medical Power of Community Support Professional
[2019-03-20] MEDS ORDERED: BYSTOLIC10 MG PO (13:16)
[2019-03-20] MEDS ORDERED: AMLODIPINE BESY10 MG PO (13:16)
[2019-03-20 13:57] LABS: BASOPHILS % 0.3 % (0.0-1.0); EOSINOPHILS % 0.3 % (0.0-6.0); HEMOGLOBIN 13.3 g/dL (12.0-16.0); LYMPHOCYTES # (AUTO) 2.1 (1.0-3.2); LYMPHOCYTES % 35.3 % (18.0-39.1); MEAN CORPUSCULAR HGB CONC 34.1 g/dL (31-35); MONOCYTES # (AUTO) 0.3 (0.2-0.8); MONOCYTES % 5.5 % (4.4-11.3); NEUTROPHILS # (AUTO) 3.4 (2.1-6.9); NEUTROPHILS % 58.4 % (38.7-80.0); PLATELET COUNT 268 x10e3/uL (140-360); RED BLOOD COUNT 4.43 x10e6/uL (3.6-5.1); RED CELL DISTRIBUTION WIDTH 12.2 % (11.7-14.4)
[2019-03-20] MEDS ORDERED: ASPIRIN 81 MG CHEW TAB PO ONE (14:00)
[2019-03-20 14:05] LABS: INR 0.88; PARTIAL THROMBOPLASTIN TIME 23.6 seconds (23.8-35.5); PROTHROMBIN TIME 12.4 seconds (11.9-14.5)
[2019-03-20 14:12] LABS: ALANINE AMINOTRANSFERASE 13 IU/L (0-55); ALBUMIN 4.1 g/dL (3.5-5.0); ALBUMIN/GLOBULIN RATIO 1.1 (0.8-2.0); ALKALINE PHOSPHATASE 58 IU/L (40-150); ANION GAP 15.4 mmol/L (8-16); BLOOD UREA NITROGEN 14 mg/dL (7-26); BUN/CREATININE RATIO 13 (6-25); CALCIUM 10.3 mg/dL (8.4-10.2); CARBON DIOXIDE 26 mmol/L (22-29); CHLORIDE 103 mmol/L (98-107); CREATINE KINASE 178 IU/L (29-168); CREATININE, SERUM 1.08 mg/dL (0.57-1.11); EST GLOMERULAR FILTRATION RATE > 60 ML/MIN (60-); GLUCOSE 99 mg/dL (74-118); MAGNESIUM 2.3 MG/DL (1.3-2.1); POTASSIUM 3.4 mmol/L (3.5-5.1); SODIUM 141 mmol/L (136-145)
--- NOTE | 2019-03-20 14:40 | Diagnostic Imaging Report ---
A single frontal view of the chest. HISTORY: Chest pain COMPARISON: Chest radiographs February 20, 2019 DISCUSSION: Portable technique, limits sensitivity of the exam. Overlying artifacts. Tubes/Lines: None Lungs and pleura: The lungs are well inflated. No evidence of a consolidative pneumonia or pulmonary alveolar edema. No definite pleural effusion or pneumothorax is identified. Heart and mediastinum: The cardiomediastinal silhouette appear(s) unremarkable. Bones and soft tissues: Appear unremarkable, given this limited exam. IMPRESSION: 1. No acute radiographic abnormality. 2. No significant interval change. Signed by: Dr. Jh Mackay D.O., M.M.M. on 03/20/2019 2:36 PM
[2019-03-20] MEDS ORDERED: KETOROLAC TROMETHAMINE 30 MG/ML VIAL IV ONE (15:00)
[2019-03-20] MEDS ORDERED: KETOROLAC TROMETHAMINE 60 MG/2 ML VIAL IM ONE (15:00)
== END 2019-03-20 15:17 | disposition home or self-care (01) ==
LOC: ER 12:57
DX: R07.89 Other chest pain (principal); I10 Essential (primary) hypertension; M79.7 Fibromyalgia; Z86.73 Personal history of transient ischemic attack (TIA), and cerebral infarction without residual deficits
CPT/HCPCS: 36415; 71045; 80053; 82550; 82553; 83735; 83880; 84484; 85025; 85610; 85730; 93005; 99284; J1885

== ENCOUNTER 2019-05-01 01:06 | Emergency (ER) | payer OTHER ==
[~2019-05-01] VITALS: Ht 157.5 cm; Wt 82.6 kg
[~2019-05-01 01:06] MED LIST changes: +AMLODIPINE BESY10 MG PO; +BYSTOLIC10 MG PO
[2019-05-01 02:12] LABS: BASOPHILS % 0.5 % (0.0-1.0); EOSINOPHILS # (AUTO) 0.2 (0.0-0.4); EOSINOPHILS % 2.9 % (0.0-6.0); HEMATOCRIT 36.5 % (34.2-44.1); HEMOGLOBIN 12.4 g/dL (12.0-16.0); LYMPHOCYTES # (AUTO) 2.9 (1.0-3.2); LYMPHOCYTES % 49.7 % (18.0-39.1); MEAN CORPUSCULAR HEMOGLOBIN 29.7 pg (28-32); MEAN CORPUSCULAR VOLUME 87.5 fL (81-99); MONOCYTES # (AUTO) 0.5 (0.2-0.8); MONOCYTES % 7.8 % (4.4-11.3); NEUTROPHILS # (AUTO) 2.2 (2.1-6.9); NEUTROPHILS % 38.8 % (38.7-80.0); PLATELET COUNT 276 x10e3/uL (140-360); RED BLOOD COUNT 4.17 x10e6/uL (3.6-5.1); RED CELL DISTRIBUTION WIDTH 11.7 % (11.7-14.4)
[2019-05-01 02:14] LABS: ALANINE AMINOTRANSFERASE 15 IU/L (0-55); ALBUMIN 3.7 g/dL (3.5-5.0); ALKALINE PHOSPHATASE 63 IU/L (40-150); ANION GAP 14.7 mmol/L (8-16); BLOOD UREA NITROGEN 18 mg/dL (7-26); BUN/CREATININE RATIO 15 (6-25); CALCIUM 10.6 mg/dL (8.4-10.2); CARBON DIOXIDE 23 mmol/L (22-29); CHLORIDE 104 mmol/L (98-107); CREATINE KINASE 77 IU/L (29-168); EST GLOMERULAR FILTRATION RATE 57 ML/MIN (60-); GLUCOSE 92 mg/dL (74-118); POTASSIUM 3.7 mmol/L (3.5-5.1); SODIUM 138 mmol/L (136-145)
[2019-05-01 02:23] LABS: CREATINE KINASE MB < 1.00 ng/mL (0-4.3)
[2019-05-01] MEDS ORDERED: SODIUM CHLORIDE 0.9% 1000ML 1,000 ML IV SCH (02:30)
--- NOTE | 2019-05-01 02:34 | NUR ---
REPORT GIVEN TO MACEY SCHAFER
[2019-05-01 02:35] LABS: INR 0.89; PARTIAL THROMBOPLASTIN TIME 30.7 seconds (23.8-35.5); PROTHROMBIN TIME 12.5 seconds (11.9-14.5)
[2019-05-01 02:51] LABS: BILIRUBIN,URINE NEGATIVE (NEGATIVE); CLARITY,URINE CLEAR (CLEAR); COLOR,URINE YELLOW (YELLOW); KETONES,URINE NEGATIVE (NEGATIVE); LEUKOCYTE ESTERASE ,URINE NEGATIVE (NEGATIVE); NITRITE,URINE NEGATIVE (NEGATIVE); PROTEIN,URINE DIPSTICK NEGATIVE (NEGATIVE); URINE UROBILINOGEN 0.2 mg/dL (0.2 - 1)
[2019-05-01 03:22] LABS: AMPHETAMINES SCREEN,URINE NEGATIVE (NEGATIVE); BENZODIAZEPINES SCREEN,URINE NEGATIVE (NEGATIVE); PHENCYCLIDINE SCREEN,URINE NEGATIVE (NEGATIVE)
--- NOTE | 2019-05-01 03:30 | Diagnostic Imaging Report ---
EXAMINATION: CHEST SINGLE (PORTABLE) INDICATION: Chest pain COMPARISON: Chest radiograph 03/20/2019 FINDINGS: AP view TUBES and LINES: None. LUNGS: Lungs are well inflated. Lungs are clear. There is no evidence of pneumonia or pulmonary edema. PLEURA: No pleural effusion or pneumothorax. HEART AND MEDIASTINUM: The cardiomediastinal silhouette is unremarkable. BONES AND SOFT TISSUES: No acute osseous lesion. Soft tissues are unremarkable. UPPER ABDOMEN: No free air under the diaphragm. IMPRESSION: No acute thoracic radiographic abnormality. Signed by: Billy Goetz DO on 05/01/2019 3:26 AM
[2019-05-01 03:34] LABS: BACTERIA,URINE FEW /HPF; EPITHELIAL CELLS,URINE RARE /LPF; WBC,URINE (MAN) 0-5 /HPF (0-5)
[2019-05-01 04:44] VITALS: BP 127/73
== END 2019-05-01 04:30 | disposition home or self-care (01) ==
LOC: ER 01:06
DX: R07.89 Other chest pain (principal); R53.1 Weakness
CPT/HCPCS: 36415; 71045; 80053; 80307; 81001; 82550; 82553; 84484; 85025; 85379; 85610; 85730; 87400; 93005; 99284; J7030